=== PATIENT | female | born 1995 | race Caucasian/White ===

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

== ENCOUNTER 2017-02-12 11:25 | Emergency (ER) | payer BC, OTHER ==
[~2017-02-12] VITALS: Ht 160 cm; Wt 54.3 kg
[~2017-02-12 11:25] MED LIST changes: +DOCUSATE SODIU100 MG PO; +ENDOCET 5-3251 EACH PO; +FERROUS SULFAT325 MG PO; +IBUPROFEN800 MG PO
[2017-02-12 12:14] LABS: HEMATOCRIT 37.7 % (36.0-46.0); MCH 27.4 PG (29.0-34.0); MCHC 31.8 G/DL (30.0-36.0); MCV 86.1 FL (83-99); MEAN PLAT.VOLUME 11.7 uM^3 (9.5-12.4); PLATELET COUNT 287 K/uL (156-360); RBC DIS.WIDTH-CV 15.9 % (11.8-14.6); RBC DIS.WIDTH-SD 49.9 % (39-53); RED BLOOD COUNT 4.38 M/uL (3.80-5.20); WHITE BLOOD COUNT 6.3 K/uL (4.1-10.2)
[2017-02-12 14:09] LABS: ADD MIUA? YES; BILIRUBIN NEGATIVE; BLOOD LARGE; COLOR YELLOW ((YELLOW)); GLUCOSE (STRIP) NEGATIVE; KETONES NEGATIVE; LEUKOCYTES NEGATIVE; NITRITE NEGATIVE; PROTEIN (STRIP) 30; SPECIFIC GRAVITY 1.025 (1.000-1.030); UROBILINOGEN 0.2 MG/DL (0.2-1.0)
[2017-02-12 14:31] LABS: RED BLOOD CELLS TNTC /HPF (0-5)
[2017-02-12 14:33] LABS: EPITHELIAL CELLS 1+ /HPF; WHITE BLOOD CELLS 0-5 /HPF (0-5)
[2017-02-12 14:34] LABS: BACTERIA RARE /HPF; CASTS NONE SEEN /LPF; CRYSTALS NONE SEEN; MUCUS 2+ /LPF; UCUL ADDED? YES
[2017-02-12] MEDS ORDERED: MOTRIN600 MG PO (15:33)
[2017-02-12 15:48] VITALS: BP 109/65
== END 2017-02-12 15:58 | disposition home or self-care (01) ==
LOC: EME 11:25
PROVIDERS: Nurse Practitioner Family
DX: N93.8 Other specified abnormal uterine and vaginal bleeding (principal); N18.9 Chronic kidney disease, unspecified; F32.9 Major depressive disorder, single episode, unspecified; F17.200 Nicotine dependence, unspecified, uncomplicated; Z88.0 Allergy status to penicillin; Z88.1 Allergy status to other antibiotic agents
CPT/HCPCS: 81003; 84702; 85027; 87086; 99281; 99283